=== PATIENT | female | born 1980 | race Caucasian/White ===

== ENCOUNTER 2017-07-24 11:20 | Emergency (ER) | payer OTHER ==
[~2017-07-24] VITALS: Ht 162.6 cm; Wt 79.4 kg
[2017-07-24 11:38] VITALS: Ht 162.6 cm; Wt 79.4 kg
[2017-07-24 12:00] VITALS: BP 125/77
== END 2017-07-24 12:00 | disposition other institution (70) ==
LOC: ED 11:20
DX: Z02.89 Encounter for other administrative examinations (principal); M79.631 Pain in right forearm; M79.632 Pain in left forearm; V49.49XA Driver injured in collision with other motor vehicles in traffic accident, initial encounter; W22.10XA Striking against or struck by unspecified automobile airbag, initial encounter; Y93.89 Activity, other specified; Y99.8 Other external cause status; Y92.89 Other specified places as the place of occurrence of the external cause